=== PATIENT | female | born 1995 | race Caucasian/White ===

== ENCOUNTER → 2019-01-29 14:00 | Observation (INO) ==
[2019-01-29 13:51] VITALS: BP 104/61
[~2019-01-29 14:00] MED LIST: Acetaminophen 325 MG TABLET PO ONE
--- NOTE | 2019-01-29 14:01 | OB/GYN Progress Note ---
Date of Encounter: 01/29/19 Time of Encounter: 13:51 Subjective - Subjective Principal diagnosis: RLQ pain 20 weeks Interval history: Patient arrived with complaint of lower right quadrant pain that started this AM around 0400. She reports never feeling this type of pain before. Antepartum ROS: movement normal, no loss of fluid, no vaginal bleeding, no contractions Objective - Vital Signs Vital Signs: Vital Signs Temp Pulse Resp BP 01/29/19 13:46 98.0 F 86 16 104/61 Intake and Output 01/28/19 01/29/19 01/29/19 23:59 07:59 15:59 Other: Weight 61.235 kg Patient Weight 01/29/19 23:59 Weight 61.235 kg
[2019-01-29 14:46] LABS: Basophils % 0.1 %; Eosinophils % 0.3 %; Hematocrit 33.3 % (35.3-44.9); Hemoglobin 11.3 g/dL (11.5-15.4); Immature Granulocytes % 0.6 % (0-4); Lymphocytes % 9.7 %; Mean Corpuscular HGB Conc 33.9 g/dL (31.6-35.5); Mean Corpuscular Hemoglobin 31.4 pg (28.0-33.3); Mean Corpuscular Volume 92.5 fL (83.0-100.0); Mean Platelet Volume 10.6 fL (9.4-12.4); Monocytes # 0.4 K/mcL (0.0-1.3); Monocytes % 4.2 %; Platelet Count 150 K/mcL (140-400); Red Cell Distribution Width 12.5 % (11.5-14.5); Segmented Neutrophils % 85.1 %
[2019-01-29 15:17] LABS: Amylase 54 Units/L (29-103); Lipase 6 Units/L (11-82)
[2019-01-29 15:19] LABS: Bilirubin,Total 0.4 mg/dL (0.3-1.0); Potassium 4.1 mEq/L (3.5-5.1)
--- NOTE | 2019-01-29 16:53 | Discharge Summary ---
Date of Encounter: 01/29/19 Time of Encounter: 16:54 - Discharge Diagnosis (1) 20 weeks gestation of Priority: Primary Status: Acute Comments: Admitted to observation for complaint of RLQ pain. (2) Abdominal pain affecting Priority: Secondary Status: Acute Comments: RLQ pain that began this morning. Observation status to evaluate pain. - Discharge Medications Prescriptions: No Action Meclizine [Antivert] 12.5 mg PO TID PRN #10 tablet PRN Reason: Dizziness Dicyclomine [Bentyl] 10 mg PO QID PRN #28 capsule PRN Reason: Pain Unisom 1 / PO DAILY Pnv95/Ferrous Fumarate/FA [ Vitamin Tablet] 1 / PO DAILY Doxylamine Succinate/Vit B6 [Bonjesta ER 20-20 mg Tablet] 1 / PO DAILY Colace Home Medications: Meclizine [Antivert] 12.5 mg PO TID PRN #10 tablet 03/29/17 [Rx] Dicyclomine [Bentyl] 10 mg PO QID PRN #28 capsule 02/03/18 [Rx] Colace 01/29/19 [History] Doxylamine Succinate/Vit B6 [Bonjesta ER 20-20 mg Tablet] 1 / PO DAILY 01/29/19 [History] Pnv95/Ferrous Fumarate/FA [ Vitamin Tablet] 1 / PO DAILY 01/29/19 [History] Unisom 1 / PO DAILY 01/29/19 [History] Allergies/Adverse Reactions: Allergy/AdvReac Type Severity Reaction Status Date / Time orange juice AdvReac See Verified 02/03/18 18:52 Comments Data Procedures and tests throughout hospitalization: Laboratory Tests 01/29/19 01/29/19 01/29/19 13:45 13:46 14:01 WBC 10.5 RBC 3.60 L Hgb 11.3 L Hct 33.3 L MCV 92.5 MCH 31.4 MCHC 33.9 RDW 12.5 Plt Count 150 MPV 10.6 Immature Gran % 0.6 Seg Neutrophils % 85.1 Lymphocytes % 9.7 Monocytes % 4.2 Eosinophils % 0.3 Basophils % 0.1 Neutrophils # 9.0 H Lymphocytes # 1.0 Monocytes # 0.4 Eosinophils # 0.0 Basophils # 0.0 Sodium Potassium Chloride Carbon Dioxide Total Bilirubin ALT 9 Amylase 54 Lipase 6 L 01/29/19 14:02 WBC RBC Hgb Hct MCV MCH MCHC RDW Plt Count MPV Immature Gran % Seg Neutrophils % Lymphocytes % Monocytes % Eosinophils % Basophils % Neutrophils # Lymphocytes # Monocytes # Eosinophils # Basophils # Sodium 134 L Potassium 4.1 Chloride 103 Carbon Dioxide 22 L Total Bilirubin 0.4 ALT Amylase Lipase Labs on day of discharge: Labs from last 24 hours 01/29/19 01/29/19 01/29/19 14:02 14:01 13:46 WBC RBC Hgb Hct MCV MCH MCHC RDW Plt Count MPV Immature Gran % Seg Neutrophils % Lymphocytes % Monocytes % Eosinophils % Basophils % Neutrophils # Lymphocytes # Monocytes # Eosinophils # Basophils # Sodium 134 L Potassium 4.1 Chloride 103 Carbon Dioxide 22 L Total Bilirubin 0.4 ALT 9 Amylase 54 Lipase 6 L 01/29/19 13:45 WBC 10.5 RBC 3.60 L Hgb 11.3 L Hct 33.3 L MCV 92.5 MCH 31.4 MCHC 33.9 RDW 12.5 Plt Count 150 MPV 10.6 Immature Gran % 0.6 Seg Neutrophils % 85.1 Lymphocytes % 9.7 Monocytes % 4.2 Eosinophils % 0.3 Basophils % 0.1 Neutrophils # 9.0 H Lymphocytes # 1.0 Monocytes # 0.4 Eosinophils # 0.0 Basophils # 0.0 Sodium Potassium Chloride Carbon Dioxide Total Bilirubin ALT Amylase Lipase Date of admission: 01/29/19 12:42 Primary care physician: PCP NONE Discharging clinician: Moira Gomez Anticipated date of discharge: 01/29/19 - Patient Status Disposition: Home, Self-Care Condition: Good Functional capacity at discharge: independent ambulation Overall status at discharge: patient is progressing back to baseline - Discharge Instructions Follow Up With: NONE,PCP [Primary Care Provider] - - Diet and Activity Activity: resume usual activities as tolerated Diet: 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 She is tender to palpation in RLQ up to epigastric area. She denies vaginal bleeding and fluid leakage and movement is appropriate for gestational age. heart tones per doppler are 160 bpm. Labs were collected to rule out appendicitis and all returned WNL. Patient is instructed to follow up with her OB provider this week. She was on her way to her appointment when she came in today and she is encouraged to make an appointment for this week. Patient was given one dose of Tylenol and instructed to use ice, heat, or comfortable positioning for pain in addition to the Tylenol. Time Attestation: Total time spent providing and/or coordinating discharge services: Time Spent: Less than 30 minutes Exam - Constitutional Vitals: Temp Pulse Resp BP 98.0 F 86 16 104/61 01/29/19 13:46 01/29/19 13:46 01/29/19 13:46 01/29/19 13:46 General appearance IM: A&O X 3, pleasant, no acute distress, answers questions appropriately - Respiratory Respiratory exam: Present: CTAB - Cardiovascular Cardiovascular exam IM: Present: RRR, +S1, +S2 - GI/Abdominal GI/Abdominal exam IM: hyperactive bowel sounds, normal bowel sounds, soft, tenderness (RLQ) - Rectal Rectal exam: deferred - External exam: normal external exam - Extremities Exam Extremities exam IM: Present: full ROM, normal capillary refill, normal inspection - Neurological Exam Neurological exam: alert, normal gait, oriented X3 - VTE Reasons for not Prescribing Prophylaxis: Treatment not Indicated - Low risk for VTE
[2019-01-29 17:38] LABS: Bacteria,Urine Few per hpf (None-Few); Bilirubin,Urine Negative (Negative); Blood,Urine Negative (Negative); Clarity,Urine Clear (Clear); Color,Urine Yellow (Yellow); Glucose,Urine (UA) Normal (Normal); Hyaline Casts,Urine None Seen per lpf (None-Few); Ketones,Urine Negative (Negative); Leukocyte Esterase,Urine Small (Negative); Nitrite,Urine Negative (Negative); PH,Urine 6.5 pH Units (5.0-8.0); Protein,Urine Negative (Neg-Trace); RBC,Urine 0-3 per hpf (0-3); Specific Gravity,Urine 1.016 (1.010-1.025); Squamous Epithelial Cell,Urine Many per lpf (None-Few); Urobilinogen,Urine Normal (Normal); WBC,Urine 0-3 per hpf (0-3)
== END | disposition home or self-care (01) ==
LOC: 1NENULAB
PROVIDERS: ADMIT Registered Nurse; ATTEND Registered Nurse

== ENCOUNTER → 2019-05-03 14:24 | Observation (INO) ==
[2019-05-03 13:17] LABS: Bilirubin,Urine Negative (Negative); Blood,Urine Negative (Negative); Clarity,Urine Cloudy (Clear); Color,Urine Yellow (Yellow); Glucose,Urine (UA) Normal (Normal); Ketones,Urine Negative (Negative); Leukocyte Esterase,Urine Moderate (Negative); Nitrite,Urine Negative (Negative); Protein,Urine Trace mg/dL (Neg-Trace); Specific Gravity,Urine 1.026 (1.010-1.025); Urobilinogen,Urine Normal (Normal)
[2019-05-03 13:19] LABS: Bacteria,Urine Moderate per hpf (None-Few); Hyaline Casts,Urine Moderate per lpf (None-Few); Squamous Epithelial Cell,Urine Many per lpf (None-Few)
[2019-05-03 13:27] LABS: Amphetamine Screen,Urine Negative ng/mL (Cutoff=1000); Barbiturate Screen,Urine Negative ng/mL (Cutoff=200); Benzodiazepines Screen,Urine Negative ng/mL (Cutoff=200); Cannabinoid Screen,Urine Negative ng/mL (Cutoff = 50); Cocaine Screen,Urine Negative ng/mL (Cutoff= 300); Opiate Screen,Urine Negative ng/mL (Cutoff=300); Phencyclidine Screen,Urine Negative ng/mL (Cutoff=25)
[2019-05-03 13:28] LABS: RBC,Urine 0-3 per hpf (0-3)
--- NOTE | 2019-05-03 14:11 | Discharge Summary ---
Date of Encounter: 05/03/19 Time of Encounter: 14:10 - Discharge Diagnosis (1) 34 weeks gestation of Priority: Primary Status: Acute Comments: Follow-up with OB as scheduled labor parameters discussed Discharge home (2) Abdominal pain affecting Priority: Secondary Status: Acute Comments: Urinalysis shows likely UTI-prescription for antibiotics given - Discharge Medications Prescriptions: New Nitrofurantoin Monohyd/M-Cryst [Macrobid 100 mg Capsule] 100 mg PO BID #10 capsule Continued Pnv95/Ferrous Fumarate/FA [ Vitamin Tablet] 1 / PO DAILY Colace 100 mg PO DAILY Home Medications: Colace 100 mg PO DAILY 01/29/19 [History] Pnv95/Ferrous Fumarate/FA [ Vitamin Tablet] 1 / PO DAILY 01/29/19 [History] Nitrofurantoin Monohyd/M-Cryst [Macrobid 100 mg Capsule] 100 mg PO BID #10 caps ule 05/03/19 [Rx] Allergies/Adverse Reactions: Allergy/AdvReac Type Severity Reaction Status Date / Time orange juice AdvReac See Verified 02/03/18 18:52 Comments Data Procedures and tests throughout hospitalization: Laboratory Tests 05/03/19 05/03/19 13:00 13:00 Urine Color Yellow Urine Clarity Cloudy A Urine pH 6.0 Ur Specific [place] 1.026 H Urine Protein Trace Urine Glucose (UA) Normal Urine Ketones Negative Urine Blood Negative Urine Nitrite Negative Urine Bilirubin Negative Urine Urobilinogen Normal Ur Leukocyte Esterase Moderate H Urine Microscopic RBC 0-3 Urine Microscopic WBC 5-15 H Ur Squamous Epith Cells Many H Urine Bacteria Moderate H Hyaline Casts Moderate H Ur Culture Indicated? YES A Urine Opiates Screen Negative Ur Buprenorphine Scrn Negative Ur Barbiturates Screen Negative Ur Phencyclidine Scrn Negative Ur Amphetamines Screen Negative U Benzodiazepines Scrn Negative Urine Cocaine Screen Negative U Marijuana (THC) Screen Negative Ur Drug Screen Interp See Below Labs on day of discharge: Labs from last 24 hours 05/03/19 05/03/19 13:00 13:00 Urine Color Yellow Urine Clarity Cloudy A Urine pH 6.0 Ur Specific [place] 1.026 H Urine Protein Trace Urine Glucose (UA) Normal Urine Ketones Negative Urine Blood Negative Urine Nitrite Negative Urine Bilirubin Negative Urine Urobilinogen Normal Ur Leukocyte Esterase Moderate H Urine Microscopic RBC 0-3 Urine Microscopic WBC 5-15 H Ur Squamous Epith Cells Many H Urine Bacteria Moderate H Hyaline Casts Moderate H Ur Culture Indicated? YES A Urine Opiates Screen Negative Ur Buprenorphine Scrn Negative Ur Barbiturates Screen Negative Ur Phencyclidine Scrn Negative Ur Amphetamines Screen Negative U Benzodiazepines Scrn Negative Urine Cocaine Screen Negative U Marijuana (THC) Screen Negative Ur Drug Screen Interp See Below Date of admission: 05/03/19 12:52 Discharging clinician: Farheen Delgado Anticipated date of discharge: 05/03/19 - Patient Status Disposition: Home, Self-Care Condition: Good Functional capacity at discharge: independent ambulation Overall status at discharge: patient is progressing back to baseline - Discharge Instructions - Diet and Activity Activity: increase activity as tolerated Diet: regular diet 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 She states it is consistent and is tender to light palpation. Urinalysis showed UTI which was treated. Follow-up with her regular OB and discharge home. Time Attestation: Total time spent providing and/or coordinating discharge services: Time Spent: Less than 30 minutes Exam - Constitutional General appearance IM: A&O X 3, pleasant, thin, answers questions appropriately - Respiratory Respiratory exam: Present: CTAB - Cardiovascular Cardiovascular exam IM: Present: RRR, +S1, +S2 - GI/Abdominal GI/Abdominal exam IM: normal bowel sounds, no peritoneal signs - Rectal Rectal exam: deferred - Uterine Tone: Firm - Extremities Exam Extremities exam IM: Present: normal capillary refill, normal inspection, radial pulses palpable and symmetrical - Neurological Exam Neurological exam: alert, CN II-XII intact, oriented X3, reflexes normal, no focal deficits, strengths equal and symetr throughout - VTE Reasons for not Prescribing Prophylaxis: Treatment not Indicated - Low risk for VTE
== END | disposition home or self-care (01) ==
LOC: 1NENULAB
PROVIDERS: ADMIT Advanced Practice Midwife; ATTEND Advanced Practice Midwife

== ENCOUNTER 2022-02-04 20:39 | Observation (INO) ==
[2022-02-04] MEDS ORDERED: 0.9 % Sodium Chloride 1,000 ML IVC ONE (21:03)
[2022-02-04] MEDS ORDERED: Ondansetron 4 MG/2 ML VIAL IVP ONE (21:03)
[2022-02-04 21:11] LABS: Basophils % 0.4 %; Eosinophils # 0.1 K/mcL (0.0-0.6); Eosinophils % 1.2 %; Hematocrit 35.1 % (35.3-44.9); Hemoglobin 11.8 g/dL (11.5-15.4); Immature Granulocytes % 0.3 % (0-4); Lymphocytes # 2.6 K/mcL (0.6-4.6); Lymphocytes % 38.1 %; Mean Corpuscular HGB Conc 33.6 g/dL (31.6-35.5); Mean Corpuscular Hemoglobin 31.1 pg (28.0-33.3); Mean Corpuscular Volume 92.6 fL (83.0-100.0); Mean Platelet Volume 10.6 fL (9.4-12.4); Monocytes # 0.3 K/mcL (0.0-1.3); Monocytes % 4.6 %; Neutrophils # 3.8 K/mcL (1.6-8.9); Platelet Count 202 K/mcL (140-400); Red Blood Count 3.79 M/mcL (3.82-4.97); Segmented Neutrophils % 55.4 %; White Blood Count 6.8 K/mcL (4.3-11.1)
[2022-02-04 21:29] LABS: Alanine Aminotransferase 12 Units/L (7-52); Albumin 4.5 g/dL (3.5-5.7); Alkaline Phosphatase 42 Units/L (34-104); Amylase 41 Units/L (29-103); Aspartate Amino Transferase 19 Units/L (13-39); BUN/Creatinine Ratio 13 (6-26); Bilirubin,Indirect 0.3 mg/dL (0.0-1.0); Bilirubin,Total 0.3 mg/dL (0.3-1.0); Blood Urea Nitrogen 15 mg/dL (6-20); Calcium 9.3 mg/dL (8.6-10.3); Carbon Dioxide 25 mEq/L (23-29); Chloride 106 mEq/L (98-107); Globulin 2.2 g/dL (2.4-3.5); Glucose 103 mg/dL (70-105); Lipase 18 Units/L (11-82); Osmolality,Calculated 285 (280-300); Potassium 3.9 mEq/L (3.5-5.1); Sodium 137 mEq/L (136-145); Total Protein 6.7 g/dL (6.4-8.9); eGFR For African Americans > 60 (> 60); eGFR For Non-African Americans 58 (> 60)
[2022-02-04 22:04] LABS: Bilirubin,Urine Negative (Negative); Blood,Urine Negative (Negative); Clarity,Urine Ex.Turbid (Clear); Color,Urine Yellow (Yellow); Glucose,Urine (UA) Normal (Normal); Ketones,Urine Trace mg/dL (Negative); Leukocyte Esterase,Urine Negative (Negative); Nitrite,Urine Negative (Negative); PH,Urine 7.5 pH Units (5.0-8.0); Protein,Urine 30 mg/dL (Neg-Trace); Specific Gravity,Urine 1.024 (1.010-1.025)
[2022-02-04 22:11] LABS: Granular Casts,Urine Few per lpf (None Seen); Squamous Epithelial Cell,Urine Few per hpf (None-Few)
[2022-02-04 22:12] LABS: Amorphous Sediment,Urine Moderate per hpf (None-Few); WBC,Urine 0-3 per hpf (0-3)
[2022-02-04] MEDS ORDERED: *HR* FentaNYL (PF) 100 MCG/2 ML VIAL IVP ONE (22:57)
[2022-02-05] MEDS ORDERED: *HR* FentaNYL (PF) 100 MCG/2 ML VIAL IVP ONE (00:49)
[2022-02-05 01:57] LABS: Basophils % 0.3 %; Eosinophils % 0.4 %; Hematocrit 31.9 % (35.3-44.9); Hemoglobin 10.6 g/dL (11.5-15.4); Immature Granulocytes % 0.5 % (0-4); Lymphocytes # 1.6 K/mcL (0.6-4.6); Lymphocytes % 14.9 %; Mean Corpuscular HGB Conc 33.2 g/dL (31.6-35.5); Mean Corpuscular Hemoglobin 30.9 pg (28.0-33.3); Mean Platelet Volume 10.9 fL (9.4-12.4); Monocytes # 0.5 K/mcL (0.0-1.3); Monocytes % 4.7 %; Neutrophils # 8.5 K/mcL (1.6-8.9); Platelet Count 164 K/mcL (140-400); Red Blood Count 3.43 M/mcL (3.82-4.97); Red Cell Distribution Width 12.3 % (11.5-14.5); Segmented Neutrophils % 79.2 %; White Blood Count 10.7 K/mcL (4.3-11.1)
[2022-02-05] MEDS ORDERED: Ibuprofen 600 MG TABLET PO PRN (02:12)
[2022-02-05] MEDS: D5% in Lactated Ringers 1,000 ML IVC SCH ×2 (02:54→06:57)
[2022-02-05] MEDS: *HR* OxyCODONE/APAP 5/325 TABLET PO PRN ×2 (03:34→13:04)
[2022-02-05] MEDS ORDERED: *HR* HYDROmorphone (PF) 1 MG/ML SYRINGE IVP ONE (05:58)
[2022-02-05] MEDS ORDERED: Ondansetron 4 MG/2 ML VIAL IVP SCH (06:00)
[2022-02-05 06:05] LABS: Hematocrit 29.2 % (35.3-44.9); Hemoglobin 9.6 g/dL (11.5-15.4)
[2022-02-05] MEDS ORDERED: *HR* Propofol 200 MG/20 ML VIAL IVP ONE (06:45)
[2022-02-05] MEDS ORDERED: *HR* Succinylcholine 200 MG/10 ML VIAL IVP ONE (06:47)
[2022-02-05] MEDS ORDERED: Lidocaine -MPF 2% 2 ML VIAL ONE (06:47)
[2022-02-05] MEDS ORDERED: *HR* Rocuronium Bromide 50 MG/5 ML VIAL ONE (06:47)
[2022-02-05] MEDS ORDERED: *HR* FentaNYL (PF) 100 MCG/2 ML VIAL ONE (07:04)
[2022-02-05] MEDS ORDERED: Ondansetron 4 MG/2 ML VIAL ONE (07:05)
[2022-02-05] MEDS ORDERED: CeFAZolin 2,000 MG/120 ML BAG IVPB ONE (07:11)
[2022-02-05] MEDS ORDERED: *HR* Meperidine 25 MG/ML SYRINGE IVP PRN (07:12)
[2022-02-05] MEDS ORDERED: Promethazine 6.25 MG in Water for inj. (sterile) 20 ML IVPB PRN (07:12)
[2022-02-05] MEDS ORDERED: *HR* HYDROmorphone PF 0.5 MG/0.5 ML SYRINGE IVP PRN (07:12)
[2022-02-05] MEDS ORDERED: Albuterol 2.5 MG/3 ML NEBULIZER IH PRN (07:12)
[2022-02-05] MEDS ORDERED: Bupivacaine/EPI 1:200k 0.25% 50 ML VIAL ONE (07:51)
[2022-02-05] MEDS ORDERED: Ketamine HCL *QUVA* 50mg (1mL) SYRINGE ONE (08:06)
[2022-02-05] MEDS ORDERED: EPHEDrine 50 MG/ML VIAL ONE (08:08)
[2022-02-05] MEDS ORDERED: Sugammadex Sodium 200 MG/2 ML VIAL IV ONE (08:54)
[2022-02-05] MEDS ORDERED: *HR* HYDROMORPHONE 2 MG/ML VIAL ONE (09:02)
[2022-02-05] MEDS ORDERED: *HR* OxyCODONE Immed Rel 5 MG TABLET PO ONE (09:20)
[2022-02-05] MEDS ORDERED: ACETAMINOPHEN IVPB ONE (10:06)
[2022-02-05] MEDS ORDERED: Ringers Solution, Lactated 1,000 ML ONE (11:01)
[2022-02-05 13:20] VITALS: BP 86/45; TEMP 97.8; O2SAT 97
[2022-02-05] MEDS ORDERED: *HR* HYDROmorphone (PF) 1 MG/ML SYRINGE IM ONE (14:04)
[2022-02-05] MEDS ORDERED: *HR* OxyCODONE/APAP 5/325 TABLET PO ONE (14:42)
[2022-02-05 14:44] LABS: Hematocrit 30.8 % (35.3-44.9); Hemoglobin 10.1 g/dL (11.5-15.4); Immature Granulocytes % 0.4 % (0-4); Lymphocytes # 0.4 K/mcL (0.6-4.6); Lymphocytes % 5.2 %; Mean Corpuscular HGB Conc 32.8 g/dL (31.6-35.5); Mean Corpuscular Hemoglobin 30.9 pg (28.0-33.3); Mean Corpuscular Volume 94.2 fL (83.0-100.0); Mean Platelet Volume 10.8 fL (9.4-12.4); Monocytes # 0.2 K/mcL (0.0-1.3); Monocytes % 1.9 %; Neutrophils # 7.3 K/mcL (1.6-8.9); Platelet Count 150 K/mcL (140-400); Red Blood Count 3.27 M/mcL (3.82-4.97); Red Cell Distribution Width 12.1 % (11.5-14.5); Segmented Neutrophils % 92.5 %; White Blood Count 7.9 K/mcL (4.3-11.1)
[2022-02-05] MEDS ORDERED: Simethicone 80 MG TAB.CHEW PO STA (14:49)
[2022-02-05 17:28] VITALS: PULSE 103
== END 2022-02-05 19:19 | disposition home or self-care (01) ==
LOC: EMEROOARM 20:39 → 1NENUOBS 20:39
PROVIDERS: ADMIT Obstetrics & Gynecology; ATTEND Obstetrics & Gynecology